=== PATIENT | female | born 1930 | race Caucasian/White ===

== ENCOUNTER 2017-12-11 15:38 | Emergency (ER) | payer OTHER, BC ==
[~2017-12-11] VITALS: Ht 160 cm; Wt 90.7 kg
[2017-12-11 15:38] VITALS: BP_SYST 128
[2017-12-11 18:05] VITALS: BP_SYST 128
== END 2017-12-11 18:05 | disposition home or self-care (01) ==
LOC: SED 15:38
DX: S82.001A Unspecified fracture of right patella, initial encounter for closed fracture (principal); K21.9 Gastro-esophageal reflux disease without esophagitis; I10 Essential (primary) hypertension; Z88.2 Allergy status to sulfonamides; Z88.8 Allergy status to other drugs, medicaments and biological substances; W19.XXXA Unspecified fall, initial encounter; Y93.89 Activity, other specified; Y92.89 Other specified places as the place of occurrence of the external cause; Y99.8 Other external cause status
CPT/HCPCS: 73564; 99284

== ENCOUNTER 2017-12-22 06:35 | Inpatient (IN) | payer OTHER, BC ==
[2017-12-16 15:11] LABS: HEMOGLOBIN 13.1 g/dL (12.0-16.0); RED BLOOD CELL COUNT(AUTO) 4.74 MIL/uL (4.2-6.2); WHITE BLOOD COUNT (AUTO) 10.2 K/uL (4.8-10.8)
[2017-12-16 15:19] LABS: BASOPHILS # (AUTO) 0.2 K/uL (0.0-0.2); BASOPHILS % (AUTO) 1.5 % (0.0-2.0); EOSINOPHILS # (AUTO) 0.1 K/uL (0.0-0.4); EOSINOPHILS % (AUTO) 1.3 % (0.0-4.0); HEMATOCRIT 40.2 % (36-48); LYMPHOCYTES # (AUTO) 2.3 K/uL (1.0-5.5); LYMPHOCYTES % (AUTO) 22.7 % (20.5-51.5); MEAN CORPUSCULAR HEMOGLOBIN 28 pg (27-31); MEAN CORPUSCULAR HGB CONC 33 % (32-36); MEAN CORPUSCULAR VOLUME 85 fL (79.0-98.0); MONOCYTES # (AUTO) 0.5 K/uL (0.0-1.0); MONOCYTES % (AUTO) 5.2 % (1.7-9.3); NEUTROPHILS # (AUTO) 7.1 K/uL (1.8-7.7); NEUTROPHILS % (AUTO) 69.3 % (40.0-70.0); PLATELET COUNT (AUTO) 287 K/uL (130-430); RED CELL DISTRIBUTION WIDTH 14.1 % (9.0-15.0)
[2017-12-16 15:20] LABS: ANION GAP 8 (5-15); CALCIUM 9.2 mg/dL (8.4-11.0); CHLORIDE 104 mmol/L (98-107); GLUCOSE 97 mg/dL (70-99); POTASSIUM 4.2 mmol/L (3.5-5.1); SODIUM SERUM 138 mmol/L (136-145); UREA NITROGEN, BLOOD 18 mg/dL (8-21)
[2017-12-16 15:22] LABS: INR 0.9 (0.8-1.2); PROTHROMBIN TIME 9.6 SECS (9.5-12.5)
[2017-12-16 15:36] LABS: ALANINE AMINOTRANSFERASE 81 U/L (12-78); ALBUMIN 2.9 g/dL (3.4-4.8); ASPARTATE AMINOTRANSFERASE 45 U/L (10-37); FREE T4 (FREE THYROXINE) 0.5 ng/dL (0.6-1.6); TOTAL BILIRUBIN 0.5 mg/dL (0.0-1.0)
[2017-12-16 16:24] LABS: BILIRUBIN,URINE NEGATIVE (NEGATIVE); CLARITY/URINE CLEAR (CLEAR); COLOR,URINE YELLOW (YELLOW); GLUCOSE,URINE NEGATIVE (NEGATIVE); KETONES,URINE NEGATIVE (NEGATIVE); LEUKOCYTE ESTERASE ,URINE NEGATIVE (NEGATIVE); NITRITE, URINE NEGATIVE (NEGATIVE); PH,URINE 6.5 (5.0-8.0); PROTEIN URINE NEGATIVE (NEGATIVE); UROBILINOGEN,URINE 0.2 (0.2-1.0)
[2017-12-16 16:39] LABS: BLOOD, URINE TRACE (NEGATIVE)
[2017-12-16 16:40] LABS: BACTERIA,URINE FEW /HPF (None Seen); RBC,URINE 0-3 /HPF (0-3); WBC,URINE NONE SEEN /HPF (0-3)
[2017-12-16 16:41] LABS: MUCUS,URINE None Seen /LPF (None Seen)
[~2017-12-22] VITALS: Ht 160 cm; Wt 90.7 kg
[2017-12-22 07:29] VITALS: BP_SYST 119
--- NOTE | 2017-12-22 07:47 | NUR ---
ATTENDING MD MD DR LUZ WAS PAGED, RE: ADMISSION ORDERS. SPOKE TO [place]
[2017-12-22] MEDS ORDERED: NEU100 PO (08:00)
[2017-12-22] MEDS ORDERED: LEVO25TA7 PO (08:00)
[2017-12-22] MEDS ORDERED: FEXO180T94 PO (08:00)
[2017-12-22] MEDS ORDERED: PREG75CA PO (08:00)
[2017-12-22] MEDS ORDERED: VERA80TA2 PO (08:04)
[2017-12-22] MEDS ORDERED: L.RH1CAP PO (08:04)
[2017-12-22] MEDS ORDERED: OMEP40CA33 PO (08:04)
[2017-12-22] MEDS ORDERED: TIZA2CAP7 PO (08:04)
[2017-12-22] MEDS ORDERED: HYDR-4100 PO (08:04)
--- NOTE | 2017-12-22 08:56 | NUR ---
CONSULTATION PAGED/CALLED Reason for Consultation: [] CARDIAC CLEARANCE FOR SURGERY Person Who was Notified: [] DR VAZQUEZ Consulting Physician: [] DR VAZQUEZ Small Brake Form Operator Specialty: [] CARDIOLOGY Ordering Physician: [] DR Beck LUZ
--- NOTE | 2017-12-22 08:57 | NUR ---
CONSULTATION PAGED/CALLED Reason for Consultation: [] ACUTE PATELLA FRACTURE Person Who was Notified: [] CB Consulting Physician: [] DR Miguelangel FOUNTAIN Electrical Manager Specialty: [] ORTHOPEDIC Ordering Physician: [] DR LUZ
--- NOTE | 2017-12-22 09:00 | NUR ---
NOTE Pt came to floor around 0730am and was admitted to room/floor by admit RN Fozia. Report rec'd from admit RN at 08am. Dr Gomez called back, orders given and carried out. Pt oriented to nursing routines/procedures and questions/concerns were answered at this time. Pt states she prefers to sit in recliner and not get into bed. Pt also requested that IV be started at midnight when she is NPO. States she is very hard stick and wants IV insertion as late as possible. Pt has right knee brace on - put on by ED. Consults were called and aware of pt's admission to the floor. No needs noted. Pt's daughter at bedside assisting pt with her needs at this time. Call light within reach.
[2017-12-22] MEDS ORDERED: tiZANidine HCL 4 MG TABLET PO PRN (10:45)
[2017-12-22] MEDS ORDERED: LORATADINE 10 MG TABLET PO ONE (11:00)
--- NOTE | 2017-12-22 12:00 | NUR ---
Note Pt was assisted to restroom with FWW and ambulated with standby assist. No needs noted. Pain tolerable at rest, does go up when getting out of recliner and ambulating to restroom. Pt was given breakfast and lunch at bedside. No needs noted. Call light within reach.
[2017-12-22 12:53] VITALS: BP_SYST 135
--- NOTE | 2017-12-22 14:00 | NUR ---
Note Pt resting in recliner - no needs noted at this time. Pt stable at this time. Labs and EKG/2D-echo completed at this time. Call light within reach.
--- NOTE | 2017-12-22 16:15 | NUR ---
Note Pt resting in recliner comfortably at this time. States she has no needs at this time. Call light within reach.
[2017-12-22 17:24] VITALS: BP_SYST 136
--- NOTE | 2017-12-22 18:20 | NUR ---
CONSULTATION PAGED/CALLED Reason for Consultation: [] H/O PE GOING FOR SURGERY Person Who was Notified: [] KARLO Consulting Physician: [] DR Farshda JARAMILLO DIRECTOR AUTOMOTIVE FOR DR RENDON Machine Sorter Specialty: [] ONCO/HEMATOLOGY Ordering Physician: [] DR LUZ
--- NOTE | 2017-12-22 18:35 | NUR ---
Note Pt resting in recliner with her daughter at bedside. No needs are noted at this time. Pt denies any pain/discomfort or SOB/resp distress noted at this time. Dr Gomez was notified that pt wants IV to be inserted tomorrow morning before surgery. No needs noted. Call light within reach. Pt checked on q1' and PRN all shift for needs and care.
[2017-12-22 19:50] VITALS: BP_SYST 134
--- NOTE | 2017-12-22 19:50 | NUR ---
OPENING SHIFT NOTE patient is alert oriented x4. patient ambulatory with walker. no iv site at this time. patient refusing IV. states she will have it tomorrow. per report, aware. plan of care discussed and advised patient to call PRN. patient verbalized understanding. will continue to monitor.
[2017-12-22] MEDS: HYDROcodone/ACETAMIN 10-325 MG TAB PO PRN ×2 (20:02→23:49)
[2017-12-22] MEDS: PREGABALIN 75 MG CAPSULE (LYRICA) PO SCH (20:03)
--- NOTE | 2017-12-22 22:35 | NUR ---
ROUNDS patient ambulated to restroom and back to recliner chair using walker and with RN at side to assist. patient advised to call for assist when she ambulates. patient verbalized understanding. will continue to monitor. bed in lowest position, call light within reach, bed alarm on. Addendum: 12/23/17 at 0002 by Znoia Garcia RN no bed alarm. patient sitting on recliner
--- NOTE | 2017-12-22 23:58 | NUR ---
ROUNDS patient sleeping on recliner chair, easily aroused. patient complaining of right knee pain, administered [facility] per order. patient refuses to return to bed, stating that she is uncomfortable in bed. informed patient to call for assist when ambulating. patient verbalized understanding. will continue to monitor.
[2017-12-23] VITALS: BP_SYST 132
--- NOTE | 2017-12-23 01:10 | NUR ---
ROUNDS patient sleeping, easily aroused. patient states her pain is 6/10, tolerable. advised patient to call for assist when ambulating. patient verbalized understanding. call light within reach. will continue to monitor.
--- NOTE | 2017-12-23 03:35 | NUR ---
ROUNDS patient sleeping comfortably, no distress noted. will continue to monitor. call light within reach.
--- NOTE | 2017-12-23 05:09 | NUR ---
ROUNDS patient awake, sitting on recliner chair. patient states her pain is tolerable. reminded patient to call for assist when ambulating. patient verbalized understanding. will continue to monitor. call light within reach.
--- NOTE | 2017-12-23 06:00 | NUR ---
UNABLE TO OBTAIN IV IV insertion attempted 6 times by Pierce DIAS and Leesa DIAS. patient tolerated well. will inform dayshift to have someone else try later.
[2017-12-23] MEDS: LEVOTHYROXINE SODIUM 0.025 MG TABLET PO SCH (07:00)
--- NOTE | 2017-12-23 07:36 | NUR ---
END OF SHIFT care endorsed to Lori DIAS. no distress noted with patient.
[2017-12-23 08:00] VITALS: BP_SYST 132
--- NOTE | 2017-12-23 08:00 | NUR ---
Note Pt sitting in recliner resting. No SOB/resp distress or severe right patella pain/discomfort noted. Pt denies any needs at this time. Call light within reach. Pt NPO for surgery this afternoon.
--- NOTE | 2017-12-23 08:14 | NUR ---
Note Several IV attempts were made to start IV on pt - 3 RN's attempted 2-3X on night auditor. Day shift ADR attempted 2-[address] Gomez was called at 0750am and notified that several attempts made to start IV and all were unsuccessful. Dr Gomez stated when pt goes to surgery anesthesiologist will start IV in OR.
[2017-12-23] MEDS: LACTOBACILLUS RHAMNOSUS GG 1 CAP CAPSULE PO SCH (08:17)
[2017-12-23] MEDS: LORATADINE 10 MG TABLET PO SCH (08:17)
[2017-12-23] MEDS: OMEPRAZOLE 20 MG CAPSULE.DR (PriLOSEC) PO SCH (08:18)
[2017-12-23] MEDS: VERAPAMIL HCL 80 MG TABLET PO SCH (08:18)
[2017-12-23] MEDS ORDERED: NON-FORMULARY MEDICATION (Fexofenadine Hcl (Allegra Allergy) 1 TAB) PO SCH (09:00)
--- NOTE | 2017-12-23 10:00 | NUR ---
Note Order for shoulder sling for knee immobilizer given by Dr Holcomb and faxed to [facility] - spoke to Arleen [phone] (fax [phone])
--- NOTE | 2017-12-23 10:27 | NUR ---
Nutrition Update Colby Scale 18 noted. Pt admitted for acute patella fracture. Diet: cardiac BMI: 35.4 kg/m2 RD to follow per nutrition care standards.
--- NOTE | 2017-12-23 11:00 | NUR ---
Note Pt resting in recliner, pt's daughter at bedside. No needs noted. Call light within reach.
[2017-12-23 12:00] VITALS: BP_SYST 139
--- NOTE | 2017-12-23 13:30 | NUR ---
Note Pt was seen by Dr Mcallister (anesthesiologist) and Dr Holcomb called for consent to be signed. Pt was assisted with CHG bath and chart for surgery is ready at this time. Call light within reach.
--- NOTE | 2017-12-23 13:33 | NUR ---
Note Pt taken off the floor via bed to OR.
--- NOTE | 2017-12-23 13:58 | NUR ---
Ornamental Painter KAMERON contacted [facility] to follow up with pt's DME. KAMERON spoke with Arleen who confirmed order is being processed.
[2017-12-23] MEDS ORDERED: LR 1,000 ML IV SCH (15:32)
[2017-12-23] MEDS ORDERED: METOCLOPRAMIDE HCL 10 MG/2 ML VIAL IVP PRN (15:45)
[2017-12-23] MEDS ORDERED: HYDROmorphone 2 MG/ML VIAL IVP PRN (15:45)
[2017-12-23] MEDS ORDERED: HYDROmorphone 1 MG INJ. 1 MG/ML AMPUL IVP PRN ×2 (15:45)
[2017-12-23] MEDS ORDERED: ONDANSETRON HCL 4 MG/2 ML VIAL ONE (17:10)
[2017-12-23] MEDS ORDERED: LR 1,000 ML IV.SOLN IV ONE (17:10)
[2017-12-23] MEDS ORDERED: PROPOFOL 200MG/ 20ML VIAL (DIPRIVAN) IV ONE (17:10)
[2017-12-23] MEDS ORDERED: fentaNYL CITRATE 250 MCG/5 ML AMP ONE (17:10)
[2017-12-23] MEDS ORDERED: MORPHINE SULFATE 10MG/10ML PF AMP ONE (17:10)
[2017-12-23] MEDS ORDERED: ROCURONIUM BROMIDE 10 MG/ML (ZEMURON) ONE (17:10)
[2017-12-23] MEDS ORDERED: fentaNYL CITRATE/PF 100 MCG/2 ML AMP ONE (17:10)
[2017-12-23] MEDS ORDERED: NS IRRIG SOLN 1000 ML IR ONE (17:10)
[2017-12-23] MEDS ORDERED: MIDAZOLAM HCL 5 MG/ML VIAL (VERSED) IV ONE (17:10)
[2017-12-23] MEDS ORDERED: SEVOFLURANE 15 MIN GAS INH ONE (17:10)
[2017-12-23] MEDS ORDERED: HYDROcodone/ACETAMIN 5-325 MG TAB (NORCO/ VICODIN) PO PRN (17:15)
[2017-12-23] MEDS ORDERED: MILK OF MAGNESIA 30 ML UDC PO PRN (17:15)
[2017-12-23 17:56] VITALS: BP_SYST 139
[2017-12-23] MEDS ORDERED: DIPHENHYDRAMINE INJ 50 MG/ML VIAL IVP PRN (18:30)
[2017-12-23] MEDS ORDERED: OXYCODONE/ACETAMINOPHEN *10*mg/325 mg TABLET PO PRN (18:30)
[2017-12-23] MEDS ORDERED: ONDANSETRON HCL 4 MG/2 ML VIAL IVP PRN (18:30)
[2017-12-23] MEDS ORDERED: NALBUPHINE HCL 10 MG/ML AMP IVP PRN (18:30)
[2017-12-23 18:45] VITALS: BP_SYST 152
--- NOTE | 2017-12-23 18:45 | NUR ---
Note Pt came back to floor via bed. Pt's right leg in knee brace. Pt has Q-pump on at 8ml running. Pt denies any pain on right knee incision site - just has burning sensation. Pt has 4 ice packs on right knee. Pt's sensation on right foot WNL and pt able to wiggle toes on right foot, foot warm to touch. Pt has IV in right hand 22g' and has LR running from PACU at this time. Pt has O2 on at 2L/nc to keep O2 sats above 92%. Call light within reach.
--- NOTE | 2017-12-23 19:15 | NUR ---
Opening Notes Received patient in bed aaox4 with family at the bedside. Patient has ONq pump on the right leg at 8ml/hr and elevated with pillow. Lung and heart sounds wnl. Patient can ambulate to the bathroom only. No PT. Patient on 2L NC and tolerating well. IV on the right hand 20g. Oriented the patient to the room and use of the call light. Bed in low position, bed alarm active, and informed patient of fall risk. Will monitor patient for any change of condition.
[2017-12-23 20:00] VITALS: BP_SYST 139
[2017-12-23] MEDS: ROPIVACAINE 0.2% 550 ML INJ SCH (21:00)
[2017-12-23] MEDS: HYDROcodone/ACETAMIN 10-325 MG TAB PO PRN (21:37)
[2017-12-23] MEDS: PREGABALIN 75 MG CAPSULE (LYRICA) PO SCH (21:58)
[2017-12-23] MEDS: SENNOSIDES 8.6 MG TABLET PO SCH (21:58)
--- NOTE | 2017-12-23 22:05 | NUR ---
Patient had complaints of pain and medicated with norco. Still on 2L NC with o2 sat at 99%. Safety precautions in place and will cont to monitor.
--- NOTE | 2017-12-24 00:18 | NUR ---
Patient in bed asleep. Easily awoken on rounds. Informed patient of hourly rounding and if they have any concerns about it. Patient states its okay just come in, with no need to knock. Will monitor on rounds.
[2017-12-24 00:25] VITALS: BP_SYST 141
--- NOTE | 2017-12-24 00:25 | NUR ---
SPOKE TO LAB RE: AM LABS Spoke to Natasha from lab who is aware in regards to patient's ordered AM labs to be drawn as priority.
--- NOTE | 2017-12-24 02:30 | NUR ---
Patient complaining of pain 10/10 on right knee. medicated with norco for pain management. No sob noted. Daughter is at the bedside assisting with care. safety precautions in place and will monitor on rounds.
[2017-12-24] MEDS: HYDROcodone/ACETAMIN 10-325 MG TAB PO PRN ×5 (02:32→23:49)
--- NOTE | 2017-12-24 04:44 | NUR ---
Patient asleep in bed visualized with rise and fall of chest. No change of condition.
[2017-12-24 04:47] LABS: BASOPHILS # (AUTO) 0.1 K/uL (0.0-0.2); BASOPHILS % (AUTO) 0.9 % (0.0-2.0); EOSINOPHILS # (AUTO) 0.2 K/uL (0.0-0.4); EOSINOPHILS % (AUTO) 2.1 % (0.0-4.0); HEMATOCRIT 34.6 % (36-48); HEMOGLOBIN 11.6 g/dL (12.0-16.0); LYMPHOCYTES # (AUTO) 2.1 K/uL (1.0-5.5); LYMPHOCYTES % (AUTO) 18.3 % (20.5-51.5); MEAN CORPUSCULAR HEMOGLOBIN 28 pg (27-31); MEAN CORPUSCULAR HGB CONC 33 % (32-36); MEAN CORPUSCULAR VOLUME 84 fL (79.0-98.0); MONOCYTES # (AUTO) 0.8 K/uL (0.0-1.0); MONOCYTES % (AUTO) 7.4 % (1.7-9.3); NEUTROPHILS # (AUTO) 8.2 K/uL (1.8-7.7); NEUTROPHILS % (AUTO) 71.3 % (40.0-70.0); PLATELET COUNT (AUTO) 384 K/uL (130-430); RED BLOOD CELL COUNT(AUTO) 4.13 MIL/uL (4.2-6.2); RED CELL DISTRIBUTION WIDTH 13.7 % (9.0-15.0); WHITE BLOOD COUNT (AUTO) 11.4 K/uL (4.8-10.8)
[2017-12-24 04:59] LABS: ANION GAP 7 (5-15); CALCIUM 7.6 mg/dL (8.4-11.0); CHLORIDE 103 mmol/L (98-107); CREATININE 0.88 mg/dL (0.55-1.30); GLUCOSE 113 mg/dL (70-99); POTASSIUM 4.3 mmol/L (3.5-5.1); SODIUM SERUM 134 mmol/L (136-145); UREA NITROGEN, BLOOD 14 mg/dL (8-21)
[2017-12-24] MEDS: LEVOTHYROXINE SODIUM 0.025 MG TABLET PO SCH (06:27)
--- NOTE | 2017-12-24 06:49 | NUR ---
Closing Notes Patient in bed resting awake with mother at bedside. Pain is being managed well. Still on 2L NC without sob. All needs have been met and will endorse to oncoming nurse. Safety precautions being observed.
[2017-12-24 08:00] VITALS: BP_SYST 110
--- NOTE | 2017-12-24 08:00 | NUR ---
AOx4 and able to verbalize her needs. . IV on the right hand, #22, sl, intact and patent. POC is explained. Call light in place, bed locked at the lowest position, will continue to monitor.
[2017-12-24] MEDS: MULTIVITAMINS TAB 1 TABLET PO SCH (08:28)
[2017-12-24] MEDS: LACTOBACILLUS RHAMNOSUS GG 1 CAP CAPSULE PO SCH (08:30)
[2017-12-24] MEDS: LORATADINE 10 MG TABLET PO SCH (08:30)
[2017-12-24] MEDS: ASCORBIC ACID 500 MG TABLET PO SCH ×2 (08:30→20:58)
[2017-12-24] MEDS: OMEPRAZOLE 20 MG CAPSULE.DR (PriLOSEC) PO SCH (08:30)
[2017-12-24] MEDS: VERAPAMIL HCL 80 MG TABLET PO SCH (08:35)
[2017-12-24] MEDS: FERROUS SULFATE 140 MG TABLET.ER PO SCH (08:47)
[2017-12-24] MEDS: ENOXAPARIN SODIUM 40 MG/0.4 ML SYRINGE SUBCUT SCH (08:47)
[2017-12-24 12:00] VITALS: BP_SYST 117
--- NOTE | 2017-12-24 13:47 | NUR ---
DC Planning: Per Dr. Holcomb: planning to discharge the pt. tomorrow with home health and DME. >> CM faxed referral inquiry to [facility] per md's request. Attn to Yoselyn fax# [phone], tel [phone]. >> Called LVM to oncall staff at [facility] to follow up with pt's DME: needs Rt Knee Immobilizer with shoulder strap and added on toilet riser /BSC. Addendum: 12/24/17 at 1409 by Alejandro Pérez RN >> confirmed with Kimmie at [facility], ARUN Day and pt's dtr/Gabbie that the knee immobilizer with shoulder strap is delivered and is in place with pt.'s effected knee. Dtr requested an additional FWW per PT's recommendation. Dtr and pt do not want BSC or toile riser. CM will get order from dr. Holcomb.
--- NOTE | 2017-12-24 14:15 | NUR ---
IV on the right hand infiltrated. Dr. Gomez is asked if patient can have no IV access, and he approves.
--- NOTE | 2017-12-24 14:31 | NUR ---
AOx4 and able to verbalize he needs. i Dressing on the abdomen intact clean with minimal saturation. Patient is NPO until further orders. Oriented the patient to the room and use of the call light. Bed in low position and bed alarm is on. Call light placed within reach and will cont to monitor on rounds. Addendum: 12/24/17 at 1432 by Shay Yao RN wrong patient
--- NOTE | 2017-12-24 14:57 | NUR ---
DC Planning: Per [facility] and [facility]: unable to arrange FWW and BSC or Toilet riser. >> VIRGILIO faxed DME inquiry to [facility] attn to Elise, fax# [phone], tel [phone]. Per Elise, the order will be process and delivering the equipment on Tuesday pending insurance approval. The office is closed during weekend. >> VIRGILIO contacted [facility]# [phone], fax# , with [employer] for staff electronic warfare linguist to call me back. >> The pt. is to be discharged to her dtr's home/Rossi Chow at [address] [place], [place] [id number] tel [phone]. >> Regarding DME/FWW, per Rossi the pt currently has a walker with wheels at home. She agreed for the FWW to be delivered on Tuesday. Rossi made aware that Medicare issued FWW once every 3 years, the pt. may not qualify for another one. [facility] [place] # [phone] information, should she need assistance for an affordable purchase or rental or donation of the DME.
--- NOTE | 2017-12-24 15:24 | NUR ---
PHYSICAL THERAPY CO-SIGN The Physical Therapy Progress Notes documented by Road Engineer Freight have been reviewed. I CONCUR W/PROFILING MACHINE SET UP OPERATOR TOOL NOTE; CONT PER TX PLAN Reviewed/Co-Signed by: Lakia Ortega PT Documentation Done by: MARTIN MENDIOLA, JOHN Addendum: 12/24/17 at 1524 by Lakia Ortega PT Amended: Links added.
--- NOTE | 2017-12-24 15:34 | NUR ---
Patient states that she wants to stay in the recliner, as she states she is more comfortable in there.
[2017-12-24 16:00] VITALS: BP_SYST 129
--- NOTE | 2017-12-24 18:00 | NUR ---
Patient finishes her dinner, no n/v noted.
--- NOTE | 2017-12-24 19:50 | NUR ---
INITIAL NOTES RECEIVED PATIENT ON BED AWAKE AND RESTING ON HER RECLINER BED, BREATHING EVEN AND UNLABORED, NO SOB NOTED, WITH PAIN LEVEL OF 4/10 PATIENT STATES IT IS TOLERABLE AND IS NOT HAVING BURNING SENSATION ON HER KNEES. PATIENT"S LOWER EXTREMITIES WITH NO PAIN NO SIGNS OF PALLOR, PULSE IS PRESENT AND NO PARESTHESIA NOTED, PATIENT ABLE TO MOVE TOES WITHOUT ANY UNTOWARD S/SX NOTED. EXPLAINED THE PLAN OF CARE AND STATED UNDERSTANDING, PATIENT NO IV ACCESS, MD AWARE. PATIENT STATES THAT HE IS MORE COMFORTABLE STAYING IN HER RECLINER CHAIR BECAUSE IT HELPS HER BACK, AND PATIENT GIVEN EDUCATION ABOUT THE BENEFITS OF STAYING ON THE BED, STATED SHE STILL PREFERS THE RECLINER CHAIR. KEPT THE PATIENT'S AFFECTED EXTREMITY EXTENDED WITH PILLOW SUPPORT UNDER THE ANKLE. WILL CONTINUE TO MONITOR CALL LIGHT WITHIN REACH.
[2017-12-24 20:00] VITALS: BP_SYST 125
--- NOTE | 2017-12-24 20:00 | NUR ---
INCENTIVE SPIROMETER PATIENT GIVEN EDUCATION ABOUT THE USE OF THE INCENTIVE SPIROMETER, 10X EVERY HOUR, PATIENT TOLERATING WELL AND SHOWED DEMONSTRATION. WILL CONTINUE TO MONITOR CALL LIGHT WITHIN REACH.
[2017-12-24] MEDS: PREGABALIN 75 MG CAPSULE (LYRICA) PO SCH (20:57)
[2017-12-24] MEDS: SENNOSIDES 8.6 MG TABLET PO SCH (20:58)
[2017-12-24] MEDS: ROPIVACAINE 0.2% 550 ML INJ SCH (21:00)
--- NOTE | 2017-12-24 22:13 | NUR ---
RN ROUNDS PATIENT ON BED SLEEPING AND RESTING BREATHING EVEN AND UNLABORED, MAINTAINED POSITION OF COMFORT AND SAFETY, ON STABLE CONDITION, NO PAIN NOTED WILL CONTINUE TO MONITOR CALL LIGHT WITHIN REACH.
[2017-12-25 00:20] VITALS: BP_SYST 130
--- NOTE | 2017-12-25 00:21 | NUR ---
RN ROUNDS PATIENT ON BED SLEEPING AND RESTING BREATHING EVEN AND UNLABORED. NO SOB NOTED, PLACED PATIENT'S AFFECTED LIMB ON EXTENDED POSITION WITH PILLOW SUPPORT ON THE ANKLE, NEUROVASCULAR CHECKS DONE AND PATIENT ABLE TO MOVE AND WIGGLE HER TOES WITHOUT ANY UNTOWARD S/SX WILL CONTINUE TO MONITOR PATIENT SAFETY MAINTAINED CALL LIGHT WITHIN REACH.
--- NOTE | 2017-12-25 02:07 | NUR ---
RN ROUNDS PATIENT ON BED SLEEPING AND RESTING ON THE RECLINER, BREATHING EVEN AND UNLABORED, NO PAIN NOTED, PATIENT KEPT COMFORTABLE, SAFETY MAINTAINED KEPT THE AFFECTED LIMB EXTENDED, WITH PILLOW UNDER THE ANKLE WILL CONTINUE TO MONITOR CALL LIGHT WITHIN REACH.
[2017-12-25] MEDS: HYDROcodone/ACETAMIN 10-325 MG TAB PO PRN ×2 (04:27→09:36)
--- NOTE | 2017-12-25 04:38 | NUR ---
PAIN/ROUNDS PATIENT WITH PAIN ON THE KNEE WITH PAIN LEVEL OF 10/10, SHARP. NEUROVASCULAR CHECKS DONE, NO SIGNS OF PARESTHESIA, EXTREMITY WARM, PATIENT ABLE TO MOVE AND WIGGLE TOES WITHOUT ANY UNTOWARD S/SX NOTED, SAFETY MAINTAINED PATIENT STILL PREFERS TO BE ON THE RECLINER CHAIR, WITH AFFECTED LEF EXTENDED AND SUPPORT ON THE ANKLE AREA. WILL CONTINUE TO MONITOR PATIENT CALL LIGHT WITHIN REACH.
[2017-12-25] MEDS: LEVOTHYROXINE SODIUM 0.025 MG TABLET PO SCH (06:20)
[2017-12-25 06:33] LABS: BASOPHILS % (AUTO) 0.3 % (0.0-2.0); EOSINOPHILS # (AUTO) 0.5 K/uL (0.0-0.4); EOSINOPHILS % (AUTO) 4.5 % (0.0-4.0); HEMATOCRIT 33.6 % (36-48); HEMOGLOBIN 11.3 g/dL (12.0-16.0); LYMPHOCYTES % (AUTO) 17.3 % (20.5-51.5); MEAN CORPUSCULAR HEMOGLOBIN 29 pg (27-31); MEAN CORPUSCULAR HGB CONC 34 % (32-36); MEAN CORPUSCULAR VOLUME 85 fL (79.0-98.0); MONOCYTES # (AUTO) 0.9 K/uL (0.0-1.0); MONOCYTES % (AUTO) 7.7 % (1.7-9.3); NEUTROPHILS # (AUTO) 8.2 K/uL (1.8-7.7); NEUTROPHILS % (AUTO) 70.2 % (40.0-70.0); PLATELET COUNT (AUTO) 359 K/uL (130-430); RED BLOOD CELL COUNT(AUTO) 3.96 MIL/uL (4.2-6.2); RED CELL DISTRIBUTION WIDTH 13.8 % (9.0-15.0); WHITE BLOOD COUNT (AUTO) 11.6 K/uL (4.8-10.8)
--- NOTE | 2017-12-25 06:42 | NUR ---
CLOSING NOTES PATIENT ON BED AWAKE AND RESTING BREATHING EVEN AND UNLABORED, NO SOB NOTED, NO PAIN NOTED, PATIENT STATED THAT IT'S TOLERABLE, MAINTAINED POSITION OF COMFORT AND SAFETY, LEGS EXTENDED AND WITH SUPPORT ON THE ANKLE, NEUROVASCULAR CHECKS DONE NO UNTOWARD S/SX NOTED, ENCOURAGED PATIENT IN INCENTIVE SPIROMETER, TOLERATED WELL. ALL NEEDS MET, KEPT PATIENT COMFORTABLE, WILL GIVE REPORT TO AM NURSE, WILL CONTINUE TO MONITOR CALL LIGHT WITHIN REACH.
[2017-12-25 06:47] LABS: ANION GAP 8 (5-15); CHLORIDE 103 mmol/L (98-107); CREATININE 0.82 mg/dL (0.55-1.30); GLUCOSE 91 mg/dL (70-99); POTASSIUM 3.9 mmol/L (3.5-5.1); SODIUM SERUM 135 mmol/L (136-145); UREA NITROGEN, BLOOD 12 mg/dL (8-21)
[2017-12-25 08:00] VITALS: BP_SYST 132
--- NOTE | 2017-12-25 08:00 | NUR ---
A/OX4. TRANSFERRED TO COMMODE AND BACK TO THE RECLINER WITH THE ASSISTANCE OF DION. POC IS EXPLAINED. PATIENT STATES THAT HE IS MORE COMFORTABLE STAYING IN HER RECLINER CHAIR BECAUSE IT HELPS HER BACK; RN PROVIDED EXPLANATION OF STAYING IN BED. THE AFFECTED EXTREMITY IS EXTENDED WITH THE PLACEMENT OF PILLOW UNDER THE HEAL. CALL LIGHT IN PLACE, RECLINER LOCKED, WILL CONTINUE TO MONITOR.
[2017-12-25] MEDS: LORATADINE 10 MG TABLET PO SCH (08:14)
[2017-12-25] MEDS: OMEPRAZOLE 20 MG CAPSULE.DR (PriLOSEC) PO SCH (08:14)
[2017-12-25] MEDS: FERROUS SULFATE 140 MG TABLET.ER PO SCH (08:15)
[2017-12-25] MEDS: LACTOBACILLUS RHAMNOSUS GG 1 CAP CAPSULE PO SCH (08:15)
[2017-12-25] MEDS: MULTIVITAMINS TAB 1 TABLET PO SCH (08:15)
[2017-12-25] MEDS: ASCORBIC ACID 500 MG TABLET PO SCH (08:15)
[2017-12-25] MEDS: VERAPAMIL HCL 80 MG TABLET PO SCH (08:16)
[2017-12-25] MEDS: ENOXAPARIN SODIUM 40 MG/0.4 ML SYRINGE SUBCUT SCH (08:23)
--- NOTE | 2017-12-25 10:22 | NUR ---
DC Planning: confirmed with Yoselyn at [facility]: she stated the agency will call pt. later on today to make appointment to visit the pt. tomorrow. [facility] # [phone], oncall # [phone] DME: arranged with Elise at [facility] # [phone]. FWW to be delivered on Tuesday12/26/17. BSC or toilet riser may delivered pending authorization by pt's insurance. [facility]escent [facility] , [place] # [phone] information, should she need assistance for an affordable purchase or rental or donation of the DME.
[2017-12-25 12:40] VITALS: BP_SYST 112
[2017-12-25 14:23] VITALS: BP_SYST 112
--- NOTE | 2017-12-27 14:41 | NUR ---
Discharge Follow Up Phone Call CERTIFIED DIETARY MANAGER phoned patient, . Patient stated she is doing well. She is staying with her daughter until she can return to her own home in [place]. She filled her prescriptions and is taking her medication as directed. She has scheduled her follow up appointments and met with a PCP on 12/27/17. [facility] has been to the home on 12/26/17. Patient stated they did not want a FWW as patient as a walker she is using. They will discuss with PT when it begins today. Patient has no other questions or concerns.
== END 2017-12-25 14:58 | disposition home health service (06) | DRG 501 ==
LOC: SMU 06:35 → EDSTATUS 12-23 13:45
PROVIDERS: ADMIT Internal Medicine; ATTEND Internal Medicine
PROC: 0QSD04Z Reposition Right Patella with Internal Fixation Device, Open Approach (ICD-10-PCS; 2017-12-23)
PROC: 0LBL0ZZ Excision of Right Upper Leg Tendon, Open Approach (ICD-10-PCS; principal; 2017-12-23 13:45)
DX: S82.001A Unspecified fracture of right patella, initial encounter for closed fracture (principal); D68.59 Other primary thrombophilia; D62 Acute posthemorrhagic anemia; I10 Essential (primary) hypertension; Z96.651 Presence of right artificial knee joint; Z66 Do not resuscitate; E03.9 Hypothyroidism, unspecified; W01.0XXA Fall on same level from slipping, tripping and stumbling without subsequent striking against object, initial encounter; E66.01 Morbid (severe) obesity due to excess calories; M19.90 Unspecified osteoarthritis, unspecified site; G62.9 Polyneuropathy, unspecified; Z85.3 Personal history of malignant neoplasm of breast; Z86.711 Personal history of pulmonary embolism; Z68.35 Body mass index [BMI] 35.0-35.9, adult; Z88.2 Allergy status to sulfonamides; Z86.718 Personal history of other venous thrombosis and embolism; Z90.49 Acquired absence of other specified parts of digestive tract; Z90.710 Acquired absence of both cervix and uterus; Z79.899 Other long term (current) drug therapy; Z88.8 Allergy status to other drugs, medicaments and biological substances; Y93.89 Activity, other specified; Y92.098 Other place in other non-institutional residence as the place of occurrence of the external cause; Y99.8 Other external cause status; Z79.01 Long term (current) use of anticoagulants
CPT/HCPCS: 36415; 71045; 73560-TC; 80048; 80053; 81000-TC; 83880; 84439; 84443-TC; 85025; 85610-TC; 85730-TC; 87081; 88305; 88311; 93005; 93306; 93970; 94010; 97110-GP; 97116-GP; 97530-GP; 97535-GP; J1650; J2250; J2274; J2405; J2704; J2795; J3010; J7120